=== PATIENT | female | born 1970 | race Two or more races ===

== ENCOUNTER 2025-01-07 11:37 | Inpatient (IN) | payer OTHER ==
[~2025-01-07] VITALS: Ht 149.9 cm; Wt 68.9 kg
[2025-01-07] MEDS ORDERED: TOPROL XL25 M1 (11:59)
--- NOTE | 2025-01-07 12:08 | NUR ---
PTE ALERTA Y ORIENTADA X3, REFIERE PADECE DE DIVERTICULITIS Y TIEENE DOLOR ABDOMINAL. AL MOMENTO DE TRIAGE PULSO EN 119, SE REALIZA EKG Y SE PRESENTA A . SE UBICA PTE. NO TIENE EN [facility].
[2025-01-07] MEDS ORDERED: PIPERACILLIN/TAZOBACTAM SODIUM 3.375 GM VIAL IV ONE ×2 (12:45→12:52)
[2025-01-07] MEDS ORDERED: 0.9 % SODIUM CHLORIDE 1,000 ML IV ONE (12:45)
[2025-01-07] MEDS ORDERED: PANTOPRAZOLE SODIUM 40 MG/VIAL VIAL IV PUSH ONE (12:45)
[2025-01-07] MEDS ORDERED: METHYLPREDNISOLONE SOD SUCC 125 MG VIAL ONE (12:52)
[2025-01-07] MEDS ORDERED: DIPHENHYDRAMINE HCL 50 MG/ML VIAL 1ML ONE (12:52)
[2025-01-07] MEDS ORDERED: METHYLPREDNISOLONE SOD SUCC 125 MG VIAL IV ONE (13:00)
[2025-01-07] MEDS ORDERED: DIPHENHYDRAMINE HCL 50 MG/ML VIAL 1ML IV ONE (13:00)
--- NOTE | 2025-01-07 13:42 | NUR ---
PTE EVALUADA POR EL DR.GRILLO RAINE ORDENA TRATAMIENTO LA CUAL SE EJECUTA POR MS.DEL CHANI HANKINS . SE MANTIENE BAJO OBSERVACION.
[2025-01-07 14:05] LABS: BASO % 0.2 % (0.1-1.2); EOS # 0.02 (0.04-0.54); EOS % 0.1 % (0.7-7.0); LYMPH # 3.21 (1.18-3.74); LYMPH % 12.3 % (19.3-53.1); MEAN PLATELET VOLUME 12.30 fl (9.4-12.4); MONO # 1.33 (0.24-0.82); MONO % 5.1 % (4.7-12.5); NEUT # 21.30 (1.56-6.13); NEUT % 81.8 % (34.0-71.1); RED CELL DISTRIBUTION WIDTH 13.7 % (11.6-14.4)
[2025-01-07 14:07] LABS: ERYTHROCYTE SEDIMENTATION RATE 81 mm/hr (0-30)
[2025-01-07 14:27] LABS: INR 1.21
[2025-01-07 14:29] LABS: URINE APPEARANCE Clear; URINE BILIRRUBIN Negative (NEGATIVE); URINE BLOOD Moderate; URINE COLOR Yellow; URINE GLUCOSE Negative (NEGATIVE); URINE KETONE Negative (NEGATIVE); URINE LEUKOCYTE Trace; URINE NITRATE Negative; URINE PROTEIN Negative (NEGATIVE); URINE UROBILINOGEN 0.2 E.U./dl
[2025-01-07 14:30] LABS: URINE BACTERIA 17.1 uL (0.0-1933); URINE EPITHELIAL CELLS 4.2 uL (0.0-38.8); URINE RBC 24.1 uL (0.0-20.8); URINE WBC 6.1 uL (0.0-23.2)
[2025-01-07 14:32] LABS: URINE CAST 0.00 uL (0.0-1.40)
[2025-01-07 14:36] LABS: ALT/SGPT 80.0 U/L (12-78); AST/SGOT 138.0 U/L (15-37); BILIRUBIN TOTAL 1.58 mg/dL (0.3-1.2); BUN CREA RATIO 6.0 (7.0-25.0); CREATININE SERUM 0.82 mg/dL (0.55-1.02); GFR 72.92; GLOBULINA 5.7 G/DL (2.4-3.5); GLUCOSE FASTING 95.0 mg/dL (65-100); OSMOLALITY SERUM 269.0 MOSM/KG (275-295)
[2025-01-07] MEDS ORDERED: MORPHINE SULFATE 2 MG/ML CARTRIDGE IV PRN (22:45)
[2025-01-07] MEDS ORDERED: RINGERS SOLUTION,LACTATED 1,000 ML IV SCH (22:45)
[2025-01-07] MEDS ORDERED: ACETAMINOPHEN 325 MG TABLET PO PRN (22:45)
[2025-01-07] MEDS ORDERED: ENALAPRILAT DIHYDRATE 1.25 MG/ML VIAL IV PRN (22:45)
[2025-01-08] MEDS ORDERED: PIPERACILLIN/TAZOBACTAM SODIUM 3.375 GM in 0.9 % SODIUM CHLORIDE 100 ML IV SCH
[2025-01-08] MEDS ORDERED: PIPERACILLIN/TAZOBACTAM SODIUM 3.375 GM VIAL IV ONE (00:25)
[2025-01-08 03:20] VITALS: BP 90/65; O2SAT 96
[2025-01-08 08:38] VITALS: BP 100/66; O2SAT 95
[2025-01-08 16:00] VITALS: BP 104/68; O2SAT 96
[2025-01-09] VITALS: BP 105/58; O2SAT 96
[2025-01-09 08:47] VITALS: BP 98/54; O2SAT 98
[2025-01-09 14:31] LABS: ALT/SGPT 85.0 U/L (12-78); AST/SGOT 56.0 U/L (15-37); BILIRUBIN TOTAL 0.58 mg/dL (0.3-1.2); BUN CREA RATIO 23.0 (7.0-25.0); CREATININE SERUM 0.71 mg/dL (0.55-1.02); GFR 86.11; GLOBULINA 4.2 G/DL (2.4-3.5); GLUCOSE FASTING 75.0 mg/dL (65-100); OSMOLALITY SERUM 289.0 MOSM/KG (275-295)
[2025-01-09 15:43] LABS: BASO % 0.2 % (0.1-1.2); EOS # 0.02 (0.04-0.54); EOS % 0.2 % (0.7-7.0); LYMPH # 2.38 (1.18-3.74); LYMPH % 19.7 % (19.3-53.1); MEAN PLATELET VOLUME 13.10 fl (9.4-12.4); MONO # 0.46 (0.24-0.82); MONO % 3.8 % (4.7-12.5); NEUT # 9.18 (1.56-6.13); NEUT % 75.8 % (34.0-71.1); RED CELL DISTRIBUTION WIDTH 13.8 % (11.6-14.4)
[2025-01-09 16:07] VITALS: BP 139/82; O2SAT 99
[2025-01-09] MEDS ORDERED: FLUCONAZOLE IN NACL,ISO-OSM 100 ML IV SCH (17:00)
[2025-01-09] MEDS ORDERED: LACTOBACILLUS ACIDOPHILUS 1 CAP CAP PO SCH (17:00)
[2025-01-09] MEDS ORDERED: fentaNYL CITRATE 50 MCG/ML AMPUL IV PUSH ONE (19:30)
[2025-01-09] MEDS ORDERED: MIDAZOLAM HCL 2 MG/2 ML VIAL IV PUSH ONE (19:30)
[2025-01-09] MEDS ORDERED: FAMOTIDINE/PF 20 MG/2 ML VIAL IV SCH (21:00)
[2025-01-10 01:15] VITALS: BP 135/83; O2SAT 96
[2025-01-10] MEDS ORDERED: MORPHINE SULFATE 4 MG/ML VIAL IV PRN (02:30)
[2025-01-10] MEDS ORDERED: ONDANSETRON HCL 4 MG in 0.9 % SODIUM CHLORIDE 50 ML IV PRN (02:30)
[2025-01-10] MEDS ORDERED: BARIUM SULFATE 450 ML ORAL.SUSP PO NR (05:00)
[2025-01-10 08:37] VITALS: BP 160/85; O2SAT 99
[2025-01-10 16:50] VITALS: BP 160/79; O2SAT 99
[2025-01-11 01:37] VITALS: BP 135/87; O2SAT 98
[2025-01-11 08:43] VITALS: BP 146/81; O2SAT 99
[2025-01-11] MEDS ORDERED: CEFEPIME HCL 2,000 MG VIAL IV SCH (12:30)
[2025-01-11] MEDS ORDERED: METRONIDAZOLE/SODIUM CHLORIDE 500 MG/100 ML PIGGYBACK IV SCH (13:00)
[2025-01-11 16:50] VITALS: BP 157/78; O2SAT 100
[2025-01-12 00:46] VITALS: BP 138/81; O2SAT 97
[2025-01-12 08:39] VITALS: BP 115/74; O2SAT 97
[2025-01-12] MEDS ORDERED: ACETAMINOPHEN 325 MG TABLET PO SCH (17:00)
[2025-01-12] MEDS ORDERED: TRAMADOL HCL 50 MG TABLET PO SCH (17:00)
[2025-01-12 17:03] VITALS: BP 109/74; O2SAT 97
[2025-01-13] VITALS: BP 105/69; O2SAT 95
[2025-01-13 08:00] VITALS: BP 120/83; O2SAT 96
[2025-01-13] MEDS ORDERED: SIMETHICONE 125 MG CAPSULE PO PRN (11:30)
[2025-01-13 12:55] LABS: BASO % 0.1 % (0.1-1.2); EOS # 0.10 (0.04-0.54); EOS % 0.5 % (0.7-7.0); LYMPH # 1.28 (1.18-3.74); LYMPH % 6.2 % (19.3-53.1); MEAN PLATELET VOLUME 11.90 fl (9.4-12.4); MONO # 0.76 (0.24-0.82); MONO % 3.7 % (4.7-12.5); NEUT # 18.44 (1.56-6.13); NEUT % 88.9 % (34.0-71.1); RED CELL DISTRIBUTION WIDTH 13.2 % (11.6-14.4)
[2025-01-13 14:18] LABS: ALT/SGPT 30.0 U/L (12-78); AST/SGOT 9.0 U/L (15-37); BILIRUBIN TOTAL 0.53 mg/dL (0.3-1.2); BUN CREA RATIO 8.0 (7.0-25.0); CREATININE SERUM 0.49 mg/dL (0.55-1.02); GFR 132.11; GLOBULINA 3.9 G/DL (2.4-3.5); GLUCOSE FASTING 111.0 mg/dL (65-100); OSMOLALITY SERUM 275.0 MOSM/KG (275-295)
[2025-01-13 21:20] VITALS: BP 133/55; O2SAT 99
[2025-01-14 01:01] VITALS: BP 118/80; O2SAT 97
[2025-01-14 08:28] VITALS: BP 120/78; O2SAT 97
[2025-01-14 16:00] VITALS: BP 123/82; O2SAT 96
[2025-01-14] MEDS ORDERED: MEROPENEM 500 MG/VIAL VIAL IV STA (16:28)
[2025-01-14] MEDS ORDERED: FLUCONAZOLE IN NACL,ISO-OSM 200 MG/100 ML PIGGYBAG IV STA (16:29)
[2025-01-14] MEDS ORDERED: MEROPENEM 500 MG/VIAL VIAL IV SCH (20:00)
[2025-01-15 00:50] VITALS: BP 125/79; O2SAT 99
[2025-01-15] MEDS ORDERED: METHYLPREDNISOLONE SOD SUCC 40 MG VIAL IV ONE (04:45)
[2025-01-15] MEDS ORDERED: DIATRIZOATE MEGLUMINE, SODIUM 30 ML BOTTLE PO ONE (04:45)
[2025-01-15] MEDS ORDERED: DIPHENHYDRAMINE HCL 50 MG/ML VIAL 1ML IV ONE (04:45)
[2025-01-15 08:16] LABS: BASO % 0.4 % (0.1-1.2); EOS # 0.32 (0.04-0.54); EOS % 2.9 % (0.7-7.0); LYMPH # 2.29 (1.18-3.74); LYMPH % 21.1 % (19.3-53.1); MEAN PLATELET VOLUME 11.40 fl (9.4-12.4); MONO # 0.66 (0.24-0.82); MONO % 6.1 % (4.7-12.5); NEUT # 7.51 (1.56-6.13); NEUT % 69.2 % (34.0-71.1); RED CELL DISTRIBUTION WIDTH 13.5 % (11.6-14.4)
[2025-01-15 08:17] VITALS: BP 124/77; O2SAT 97
[2025-01-15] MEDS ORDERED: FLUCONAZOLE IN NACL,ISO-OSM 200 MG/100 ML PIGGYBAG IV SCH (09:00)
[2025-01-15] MEDS ORDERED: DIPHENHYDRAMINE HCL 50 MG/ML VIAL 1ML IV NR (10:30)
[2025-01-15] MEDS ORDERED: METHYLPREDNISOLONE SOD SUCC 40 MG VIAL IV NR (10:30)
[2025-01-15 16:00] VITALS: BP 123/79; O2SAT 97
[2025-01-16 00:11] VITALS: BP 117/75; O2SAT 96
[2025-01-16 06:18] LABS: BASO % 0.1 % (0.1-1.2); EOS # 0.00 (0.04-0.54); EOS % 0.0 % (0.7-7.0); LYMPH # 1.56 (1.18-3.74); LYMPH % 13.2 % (19.3-53.1); MEAN PLATELET VOLUME 11.10 fl (9.4-12.4); MONO # 0.30 (0.24-0.82); MONO % 2.5 % (4.7-12.5); NEUT # 9.85 (1.56-6.13); NEUT % 83.5 % (34.0-71.1); RED CELL DISTRIBUTION WIDTH 13.4 % (11.6-14.4)
[2025-01-16 08:46] VITALS: BP 142/82; O2SAT 97
[2025-01-16 16:00] VITALS: BP 141/81; O2SAT 99
[2025-01-17 00:35] VITALS: BP 140/86; O2SAT 96
[2025-01-17 08:55] VITALS: BP 156/71; O2SAT 100
[2025-01-17 14:00] VITALS: BP 135/77; O2SAT 100
[2025-01-18 00:27] VITALS: BP 156/86; O2SAT 97
[2025-01-18 08:00] VITALS: BP 134/83; O2SAT 97
[2025-01-18 16:33] VITALS: BP 135/84; O2SAT 96
[2025-01-19 00:26] VITALS: BP 130/81; O2SAT 98
[2025-01-19 06:57] LABS: BASO % 0.3 % (0.1-1.2); EOS # 0.27 (0.04-0.54); EOS % 2.5 % (0.7-7.0); LYMPH # 2.81 (1.18-3.74); LYMPH % 25.5 % (19.3-53.1); MEAN PLATELET VOLUME 10.10 fl (9.4-12.4); MONO # 0.56 (0.24-0.82); MONO % 5.1 % (4.7-12.5); NEUT # 7.28 (1.56-6.13); NEUT % 66.1 % (34.0-71.1); RED CELL DISTRIBUTION WIDTH 13.6 % (11.6-14.4)
[2025-01-19 07:23] LABS: BUN CREA RATIO 15.0 (7.0-25.0); CREATININE SERUM 0.4 mg/dL (0.55-1.02); GFR 166.97; GLUCOSE FASTING 94.0 mg/dL (65-100); OSMOLALITY SERUM 286.0 MOSM/KG (275-295)
[2025-01-19 08:00] VITALS: BP 160/94; O2SAT 97
[2025-01-19] MEDS ORDERED: METOPROLOL SUCCINATE 25 MG TAB.SR.24H PO NR (12:30)
[2025-01-19 16:03] VITALS: BP 138/81; O2SAT 98
[2025-01-20 00:47] VITALS: BP 128/84; O2SAT 97
[2025-01-20 08:00] VITALS: BP 128/85; O2SAT 95
[2025-01-20] MEDS ORDERED: METOPROLOL SUCCINATE 25 MG TAB.SR.24H PO SCH (09:00)
[2025-01-20] MEDS ORDERED: METHYLPREDNISOLONE SOD SUCC 40 MG VIAL IV NR (10:15)
[2025-01-20] MEDS ORDERED: DIPHENHYDRAMINE HCL 50 MG/ML VIAL 1ML IV NR (10:15)
[2025-01-20 16:00] VITALS: BP 162/92; O2SAT 96
[2025-01-21 00:21] VITALS: BP 117/70; O2SAT 99
[2025-01-21 07:55] LABS: BASO % 0.3 % (0.1-1.2); EOS # 0.26 (0.04-0.54); EOS % 2.2 % (0.7-7.0); LYMPH # 1.74 (1.18-3.74); LYMPH % 14.5 % (19.3-53.1); MEAN PLATELET VOLUME 10.50 fl (9.4-12.4); MONO # 0.40 (0.24-0.82); MONO % 3.3 % (4.7-12.5); NEUT # 9.51 (1.56-6.13); NEUT % 79.4 % (34.0-71.1); RED CELL DISTRIBUTION WIDTH 13.8 % (11.6-14.4)
[2025-01-21 08:09] LABS: ALT/SGPT 33.0 U/L (12-78); AST/SGOT 27.0 U/L (15-37); BILIRUBIN TOTAL 0.32 mg/dL (0.3-1.2); BUN CREA RATIO 17.0 (7.0-25.0); CREATININE SERUM 0.52 mg/dL (0.55-1.02); GFR 123.35; GLOBULINA 3.8 G/DL (2.4-3.5); GLUCOSE FASTING 122.0 mg/dL (65-100); OSMOLALITY SERUM 283.0 MOSM/KG (275-295)
[2025-01-21 09:20] VITALS: BP 122/81; O2SAT 98
[2025-01-21] MEDS ORDERED: DIATRIZOATE MEGLUMINE, SODIUM 30 ML BOTTLE PO NR (09:30)
[2025-01-21] MEDS ORDERED: METHYLPREDNISOLONE SOD SUCC 40 MG VIAL IV NR (09:30)
[2025-01-21] MEDS ORDERED: DIPHENHYDRAMINE HCL 50 MG/ML VIAL 1ML IV NR (09:30)
[2025-01-21 16:00] VITALS: BP 117/78; O2SAT 95
[2025-01-22 00:42] VITALS: BP 106/70; O2SAT 98
[2025-01-22 08:02] VITALS: BP 113/76; O2SAT 96
[2025-01-22 08:44] LABS: BUN CREA RATIO 26.0 (7.0-25.0); CREATININE SERUM 0.47 mg/dL (0.55-1.02); GFR 138.61; GLUCOSE FASTING 132.0 mg/dL (65-100); OSMOLALITY SERUM 281.0 MOSM/KG (275-295)
[2025-01-22 16:44] VITALS: BP 120/78; O2SAT 97
[2025-01-23 00:36] VITALS: BP 127/86; O2SAT 98
[2025-01-23 08:13] VITALS: BP 127/82; O2SAT 97
[2025-01-23 16:00] VITALS: BP 116/82; O2SAT 97
[2025-01-24 01:24] VITALS: BP 122/78; O2SAT 100
[2025-01-24 07:35] LABS: BASO % 0.3 % (0.1-1.2); EOS # 0.23 (0.04-0.54); EOS % 1.5 % (0.7-7.0); LYMPH # 2.38 (1.18-3.74); LYMPH % 16.0 % (19.3-53.1); MEAN PLATELET VOLUME 10.40 fl (9.4-12.4); MONO # 0.83 (0.24-0.82); MONO % 5.6 % (4.7-12.5); NEUT # 11.38 (1.56-6.13); NEUT % 76.3 % (34.0-71.1); RED CELL DISTRIBUTION WIDTH 14.2 % (11.6-14.4)
[2025-01-24 08:00] VITALS: BP 115/79; O2SAT 97
[2025-01-24 08:33] LABS: BUN CREA RATIO 16.0 (7.0-25.0); CREATININE SERUM 0.57 mg/dL (0.55-1.02); GFR 110.95; GLUCOSE FASTING 97.0 mg/dL (65-100); OSMOLALITY SERUM 280.0 MOSM/KG (275-295)
[2025-01-24] MEDS ORDERED: ENOXAPARIN SODIUM 40 MG/0.4 ML SYRINGE SUBCUTANEO SCH (09:00)
[2025-01-24 16:56] VITALS: BP 113/77; O2SAT 96
[2025-01-24] MEDS ORDERED: DICYCLOMINE HCL 20 MG TABLET PO SCH (17:00)
[2025-01-24] MEDS ORDERED: MAGNESIUM SULFATE IN WATER 2 GM/50 ML PIGGYBAG IV NR (17:30)
[2025-01-25 00:43] VITALS: BP 98/65; O2SAT 96
[2025-01-25 08:00] VITALS: BP 112/75; O2SAT 96
[2025-01-25 08:33] LABS: BASO % 0.5 % (0.1-1.2); EOS # 0.29 (0.04-0.54); EOS % 2.3 % (0.7-7.0); LYMPH # 2.66 (1.18-3.74); LYMPH % 21.4 % (19.3-53.1); MEAN PLATELET VOLUME 10.70 fl (9.4-12.4); MONO # 0.75 (0.24-0.82); MONO % 6.0 % (4.7-12.5); NEUT # 8.65 (1.56-6.13); NEUT % 69.6 % (34.0-71.1); RED CELL DISTRIBUTION WIDTH 14.1 % (11.6-14.4)
[2025-01-25 09:10] LABS: BUN CREA RATIO 14.0 (7.0-25.0); CREATININE SERUM 0.5 mg/dL (0.55-1.02); GFR 129.06; GLUCOSE FASTING 89.0 mg/dL (65-100); OSMOLALITY SERUM 275.0 MOSM/KG (275-295)
== END 2025-01-25 22:30 | DRG 392 ==
LOC: ER 12:20 → SURH 01-08 00:02
PROVIDERS: Colon & Rectal Surgery; General Practice; Internal Medicine; Internal Medicine Infectious Disease; Student in an Organized Health Care Education/Training Program; ADMIT Internal Medicine; ATTEND Internal Medicine
PROC: BW21YZZ Computerized Tomography (CT Scan) of Abdomen and Pelvis using Other Contrast (ICD-10-PCS; 2025-01-07)
PROC: 0W9G3ZX Drainage of Peritoneal Cavity, Percutaneous Approach, Diagnostic (ICD-10-PCS; principal; 2025-01-09)
PROC: BW21YZZ Computerized Tomography (CT Scan) of Abdomen and Pelvis using Other Contrast (ICD-10-PCS; 2025-01-10)
PROC: BW21YZZ Computerized Tomography (CT Scan) of Abdomen and Pelvis using Other Contrast (ICD-10-PCS; 2025-01-15)
PROC: BW21YZZ Computerized Tomography (CT Scan) of Abdomen and Pelvis using Other Contrast (ICD-10-PCS; 2025-01-21)
DX: K57.92 Diverticulitis of intestine, part unspecified, without perforation or abscess without bleeding (principal); N73.9 Female pelvic inflammatory disease, unspecified

== ENCOUNTER 2025-02-05 20:23 | Inpatient (IN) | payer OTHER ==
[~2025-02-05] VITALS: Ht 149.9 cm; Wt 67.6 kg
[~2025-02-05 20:23] MED LIST: TOPROL XL25 M1
[2025-02-05] MEDS ORDERED: PEPCID AC20 MG PO (20:40)
[2025-02-05] MEDS ORDERED: PROBIOTIC1 EAC4 (20:40)
[2025-02-05] MEDS ORDERED: PEPCID AC20 MG (20:40)
--- NOTE | 2025-02-05 20:41 | NUR ---
PTE REFIERE MAL FUNCIONAMIENTO DE DRENA EN AREA DEL ABDOMEN, EL CUAL SE ADMINISTRO PARA DRENAR DOS ABSCESOS Y FISURA.
[2025-02-05] MEDS ORDERED: RINGERS SOLUTION,LACTATED 1,000 ML IV STA (21:55)
[2025-02-05] MEDS ORDERED: PIPERACILLIN/TAZOBACTAM SODIUM 3.375 GM VIAL IV STA (21:55)
--- NOTE | 2025-02-05 22:02 | NUR ---
SE ORIENTA A PACIENTE SOBRE TX MEDICO, REFIERE ENTENDER. SE REALIZAN MUESTRAS DE LABORATORIO BAJO MEDIDAS ASEPTICAS. SE ADMINISTRA IV'S Y MEDICAMENTO [place] ORDEN MEDICA. PENDIENTE RE-EVALUACION MEDICA.
[2025-02-05 23:18] LABS: BASO % 0.2 % (0.1-1.2); EOS # 0.13 (0.04-0.54); EOS % 0.9 % (0.7-7.0); LYMPH # 1.05 (1.18-3.74); LYMPH % 7.1 % (19.3-53.1); MEAN PLATELET VOLUME 11.90 fl (9.4-12.4); MONO # 0.44 (0.24-0.82); MONO % 3.0 % (4.7-12.5); NEUT # 13.17 (1.56-6.13); NEUT % 88.5 % (34.0-71.1); RED CELL DISTRIBUTION WIDTH 14.2 % (11.6-14.4)
[2025-02-05] MEDS ORDERED: MORPHINE SULFATE 4 MG/ML VIAL IV STA (23:30)
[2025-02-05 23:31] LABS: INR 1.1
[2025-02-05 23:36] LABS: ALT/SGPT 28.0 U/L (12-78); AST/SGOT 17.0 U/L (15-37); BILIRUBIN TOTAL 0.67 mg/dL (0.3-1.2); BUN CREA RATIO 12.0 (7.0-25.0); CREATININE SERUM 0.59 mg/dL (0.55-1.02); GFR 106.62; GLOBULINA 4.4 G/DL (2.4-3.5); GLUCOSE FASTING 144.0 mg/dL (65-100); OSMOLALITY SERUM 285.0 MOSM/KG (275-295)
--- NOTE | 2025-02-05 23:55 | NUR ---
SE RECIBE PTE ALERTA Y ORIENTADA X3, BUEN PATRON RESPIRATORIO, CANALIZADA EN BRAZO IZQUERDO ANGIO #[id number], PATENTE, RECIBIENDO R/L A 120 MLS/HR. PTE EN ESPERA DE REPORTE DE CT SCAN, PARA REEVALUACION.
[2025-02-06] MEDS ORDERED: MORPHINE SULFATE 4 MG/ML VIAL IV STA (06:58)
--- NOTE | 2025-02-06 07:16 | NUR ---
PTE ALERTA Y ORIENTADA X3 EN LIBRADO EN POSICION SEMI SENTADA CON BARANDAS ELEVADAS POR POLO SEGURIDAD. PTE CANLIZADA AREA SHANICE DE EDEMA Y ENROJECIMIENTO. PTE RECIBIENDO INFUSION DE 0.9 NSS @ 120 ML/HR. SE MANTIENE BAJO OBSERVACION POR CAMBIO.
[2025-02-06] MEDS ORDERED: METRONIDAZOLE/SODIUM CHLORIDE 500 MG/100 ML PIGGYBACK IV STA (07:27)
[2025-02-06] MEDS ORDERED: MEROPENEM 500 MG/VIAL VIAL IV STA (07:30)
--- NOTE | 2025-02-06 08:22 | NUR ---
SE RECIBE PTE FEMENINA DE 55 YRS ALERTA CONCIENTE Y TRANQUILA . POR ORDEN MEDIC A, SE LE ADMINIOSTRA MEDICAMENTOS DE ANTIBIOTICO POR IV. SE LA ADMOINISTRA MORFINA 4 MG POR DOLOR . SE MANTIENE NPO Y SE LE ORIENTA A LA PTE. SE MANTIENE BAJO OBSERVACION.
[2025-02-06] MEDS ORDERED: METRONIDAZOLE/SODIUM CHLORIDE 500 MG/100 ML PIGGYBACK IV SCH (09:00)
[2025-02-06] MEDS ORDERED: MEROPENEM 500 MG/VIAL VIAL IV SCH (17:00)
[2025-02-06] MEDS ORDERED: FAMOTIDINE/PF 20 MG in 0.9 % SODIUM CHLORIDE 8 ML IV PUSH SCH (17:23)
[2025-02-06] MEDS ORDERED: ONDANSETRON HCL 4 MG in 0.9 % SODIUM CHLORIDE 50 ML IV PRN (17:30)
[2025-02-06] MEDS ORDERED: MORPHINE SULFATE 4 MG/ML CARTRIDGE IV PRN (17:30)
[2025-02-06] MEDS ORDERED: MORPHINE SULFATE 4 MG/ML CARTRIDGE IV ONE (17:30)
[2025-02-06] MEDS ORDERED: ACETAMINOPHEN 500 MG GEL..CAP PO PRN (17:30)
[2025-02-06] MEDS ORDERED: 0.9 % SODIUM CHLORIDE 1,000 ML IV SCH (17:30)
[2025-02-06 19:00] VITALS: BP 123/65; O2SAT 96
[2025-02-07 06:13] LABS: URINE APPEARANCE Clear; URINE BILIRRUBIN Negative (NEGATIVE); URINE BLOOD Large; URINE COLOR Orange; URINE GLUCOSE Negative (NEGATIVE); URINE LEUKOCYTE Small; URINE NITRATE Negative; URINE PROTEIN Trace (NEGATIVE); URINE UROBILINOGEN 0.2 E.U./dl
[2025-02-07 06:17] LABS: URINE BACTERIA 7.1 uL (0.0-1933); URINE EPITHELIAL CELLS 7.9 uL (0.0-38.8); URINE RBC 316.5 uL (0.0-20.8); URINE WBC 22.7 uL (0.0-23.2)
[2025-02-07 06:37] LABS: URINE CAST 0.43 uL (0.0-1.40); URINE KETONE 80 (NEGATIVE)
[2025-02-07] MEDS ORDERED: METOPROLOL SUCCINATE 25 MG TAB.SR.24H PO SCH (09:00)
[2025-02-07] MEDS ORDERED: FLUCONAZOLE IN NACL,ISO-OSM 100 ML IV SCH (10:30)
[2025-02-07 13:50] VITALS: BP 113/74; O2SAT 98
[2025-02-08 08:00] VITALS: BP 116/75; O2SAT 99
[2025-02-08] MEDS ORDERED: FLUCONAZOLE IN NACL,ISO-OSM 100 ML IV SCH (09:00)
[2025-02-08] MEDS ORDERED: DEXTROSE 5 %-0.45 % SOD CHLORD 1,000 ML IV SCH (09:45)
[2025-02-08] MEDS ORDERED: DEXTROSE 50 % IN WATER 0.5 G/ML VIAL IV PRN (10:15)
[2025-02-08 16:00] VITALS: BP 135/80; O2SAT 98
[2025-02-09 01:57] VITALS: BP 108/71; O2SAT 97
[2025-02-09 09:32] LABS: BASO % 0.4 % (0.1-1.2); EOS # 0.21 (0.04-0.54); EOS % 4.4 % (0.7-7.0); LYMPH # 1.37 (1.18-3.74); LYMPH % 29.0 % (19.3-53.1); MEAN PLATELET VOLUME 12.20 fl (9.4-12.4); MONO # 0.31 (0.24-0.82); MONO % 6.6 % (4.7-12.5); NEUT # 2.80 (1.56-6.13); NEUT % 59.4 % (34.0-71.1); RED CELL DISTRIBUTION WIDTH 13.7 % (11.6-14.4)
[2025-02-09 10:18] LABS: BUN CREA RATIO 5.0 (7.0-25.0); CREATININE SERUM 0.37 mg/dL (0.55-1.02); GFR 182.69; GLUCOSE FASTING 107.0 mg/dL (65-100); OSMOLALITY SERUM 285.0 MOSM/KG (275-295)
[2025-02-09 10:31] VITALS: BP 134/84; O2SAT 98
[2025-02-09 16:00] VITALS: BP 146/89; O2SAT 99
[2025-02-09] MEDS ORDERED: IOVERSOL 320 MG/ML - 50 ML VIAL IV ONE (21:30)
[2025-02-09] MEDS ORDERED: NITROGLYCERIN 1 INCH OINT..GM. TD ONE (22:30)
[2025-02-09] MEDS ORDERED: BUPIVACAINE HCL/PF 0.25% 30ML VIAL InF ONE (22:30)
[2025-02-09] MEDS ORDERED: METRONIDAZOLE/SODIUM CHLORIDE 500 MG/100 ML PIGGYBACK IV ONE (23:58)
[2025-02-10 06:47] LABS: BASO % 0.7 % (0.1-1.2); EOS # 0.21 (0.04-0.54); EOS % 3.6 % (0.7-7.0); LYMPH # 1.58 (1.18-3.74); LYMPH % 26.8 % (19.3-53.1); MEAN PLATELET VOLUME 12.10 fl (9.4-12.4); MONO # 0.40 (0.24-0.82); MONO % 6.8 % (4.7-12.5); NEUT # 3.66 (1.56-6.13); NEUT % 61.9 % (34.0-71.1); RED CELL DISTRIBUTION WIDTH 13.6 % (11.6-14.4)
[2025-02-10 08:00] VITALS: BP 131/76; O2SAT 96
[2025-02-10] MEDS ORDERED: CEFTAZIDIME/AVIBACTAM 2.5 GM VIAL IV STA (11:45)
[2025-02-10] MEDS ORDERED: CEFTAZIDIME/AVIBACTAM 2.5 GM VIAL IV SCH (13:00)
[2025-02-10] MEDS ORDERED: AMPICILLIN SODIUM/SULBACTAM NA 3,000 MG VIAL IV SCH (17:00)
[2025-02-10 17:02] VITALS: BP 113/72; O2SAT 97
[2025-02-11 01:06] VITALS: BP 109/73; O2SAT 98
[2025-02-11] MEDS ORDERED: 0.9 % SODIUM CHLORIDE 1,000 ML IV SCH (10:30)
[2025-02-11 16:00] VITALS: BP 141/80; O2SAT 98
[2025-02-11] MEDS ORDERED: CEFTAZIDIME/AVIBACTAM 1.25GM/100ML NSS PB IV SCH (21:00)
[2025-02-12 01:38] VITALS: BP 121/79; O2SAT 98
[2025-02-12 08:00] LABS: BASO % 0.5 % (0.1-1.2); EOS # 0.24 (0.04-0.54); EOS % 4.0 % (0.7-7.0); LYMPH # 2.36 (1.18-3.74); LYMPH % 39.1 % (19.3-53.1); MEAN PLATELET VOLUME 11.70 fl (9.4-12.4); MONO # 0.43 (0.24-0.82); MONO % 7.1 % (4.7-12.5); NEUT # 2.96 (1.56-6.13); NEUT % 49.0 % (34.0-71.1); RED CELL DISTRIBUTION WIDTH 13.8 % (11.6-14.4)
[2025-02-12 08:30] VITALS: BP 144/80; O2SAT 97
[2025-02-12] MEDS ORDERED: CEFTAZIDIME/AVIBACTAM 2.5 GM VIAL IV SCH (13:00)
[2025-02-12 14:36] LABS: BUN CREA RATIO 7.0 (7.0-25.0); CREATININE SERUM 0.46 mg/dL (0.55-1.02); GFR 142.1; GLUCOSE FASTING 88.0 mg/dL (65-100); OSMOLALITY SERUM 285.0 MOSM/KG (275-295)
[2025-02-12 16:00] VITALS: BP 173/82; O2SAT 97
[2025-02-13 00:38] VITALS: BP 127/73; O2SAT 100
[2025-02-13 08:56] VITALS: BP 126/71; O2SAT 97
[2025-02-13 17:21] VITALS: BP 132/78; O2SAT 98
[2025-02-14 01:57] VITALS: BP 127/78; O2SAT 99
[2025-02-14 08:58] VITALS: BP 118/68; O2SAT 96
[2025-02-14 17:28] VITALS: BP 130/78; O2SAT 98
[2025-02-15] VITALS: BP 131/77; O2SAT 95
[2025-02-15 09:23] VITALS: BP 124/75; O2SAT 96
[2025-02-15 17:42] VITALS: BP 134/83; O2SAT 95
== END 2025-02-15 19:51 | DRG 920 ==
LOC: ER 20:28 → SURH 02-06 17:35 → SEC-K 02-06 17:35 → SURG 02-06 17:35 → SURH 02-06 22:07 → SEC-K 02-06 23:48 → SURG 02-07 09:58 → SURH 02-09 09:52
PROVIDERS: General Practice; Radiology Vascular & Interventional Radiology; Student in an Organized Health Care Education/Training Program; ADMIT Internal Medicine; ATTEND Internal Medicine
PROC: BW21ZZZ Computerized Tomography (CT Scan) of Abdomen and Pelvis (ICD-10-PCS; 2025-02-05)
PROC: 0W2FX0Z Change Drainage Device in Abdominal Wall, External Approach (ICD-10-PCS; 2025-02-09)
PROC: 8E0ZXY6 Isolation (ICD-10-PCS; principal; 2025-02-09 23:00)
PROC: 3E03329 Introduction of Other Anti-infective into Peripheral Vein, Percutaneous Approach (ICD-10-PCS; 2025-02-10)
DX: T85.628A Displacement of other specified internal prosthetic devices, implants and grafts, initial encounter (principal); K57.20 Diverticulitis of large intestine with perforation and abscess without bleeding; L02.211 Cutaneous abscess of abdominal wall; E16.2 Hypoglycemia, unspecified; I10 Essential (primary) hypertension; Z88.2 Allergy status to sulfonamides; B96.1 Klebsiella pneumoniae [K. pneumoniae] as the cause of diseases classified elsewhere; B96.20 Unspecified Escherichia coli [E. coli] as the cause of diseases classified elsewhere; B95.2 Enterococcus as the cause of diseases classified elsewhere
CPT/HCPCS: 49424; 76080; 49423; 75984; 74176; J0714

== ENCOUNTER 2025-04-07 11:00 | Inpatient (IN) | payer OTHER ==
[~2025-04-07] VITALS: Ht 152.4 cm; Wt 0.5 kg
[~2025-04-07 11:00] MED LIST changes: +PEPCID AC20 MG; +PEPCID AC20 MG PO; +PROBIOTIC1 EAC4
[2025-04-14] MEDS ORDERED: CEFTRIAXONE SODIUM 2,000 MG VIAL ONE (06:36)
[2025-04-14] MEDS ORDERED: METRONIDAZOLE/SODIUM CHLORIDE 500 MG/100 ML PIGGYBACK IV ONE (06:36)
[2025-04-14] MEDS ORDERED: LIDOCAINE HCL 1%/EPINEPHRINE 20ML VIAL IJ ONE (07:12)
[2025-04-14] MEDS ORDERED: POVIDONE-IODINE 118 ML BOTT TOP ONE (07:12)
[2025-04-14] MEDS ORDERED: BUPIVACAINE HCL/MPF 0.5% 30ML VIAL ONE (07:12)
[2025-04-14] MEDS ORDERED: CHLORHEXIDINE GLUCONATE 120 ML BOTTLE TOP ONE (09:00)
[2025-04-14] MEDS ORDERED: SUGAMMADEX SODIUM 200 MG/2 ML VIAL IV ONE (12:04)
[2025-04-14] MEDS ORDERED: OxyCODONE HCL 5 MG TABLET (ROXICODONE) PO PRN (13:30)
[2025-04-14] MEDS ORDERED: MORPHINE SULFATE 4 MG/ML CARTRIDGE IV PRN (13:30)
[2025-04-14] MEDS ORDERED: RINGERS SOLUTION,LACTATED 1,000 ML IV SCH (13:30)
[2025-04-14] MEDS ORDERED: ONDANSETRON HCL 2 MG/ML VIAL IV PRN (13:30)
[2025-04-14] MEDS ORDERED: ACETAMINOPHEN 500 MG GEL..CAP PO SCH (14:00)
[2025-04-14] MEDS ORDERED: ONDANSETRON HCL 2 MG/ML VIAL ONE (14:43)
[2025-04-14] MEDS ORDERED: ONDANSETRON HCL 2 MG/ML VIAL IV ONE (14:45)
[2025-04-14 15:35] LABS: BASO % 0.2 % (0.1-1.2); EOS # 0.01 (0.04-0.54); EOS % 0.1 % (0.7-7.0); LYMPH # 1.20 (1.18-3.74); LYMPH % 7.3 % (19.3-53.1); MEAN PLATELET VOLUME 11.40 fl (9.4-12.4); MONO # 0.40 (0.24-0.82); MONO % 2.4 % (4.7-12.5); NEUT # 14.69 (1.56-6.13); NEUT % 89.8 % (34.0-71.1); RED CELL DISTRIBUTION WIDTH 12.1 % (11.6-14.4)
[2025-04-14 16:00] LABS: BUN CREA RATIO 11.0 (7.0-25.0); CREATININE SERUM 0.84 mg/dL (0.55-1.02); GFR 70.92; GLUCOSE FASTING 149.0 mg/dL (65-100); OSMOLALITY SERUM 285.0 MOSM/KG (275-295)
[2025-04-14] MEDS ORDERED: METRONIDAZOLE/SODIUM CHLORIDE 500 MG/100 ML PIGGYBACK IV SCH (17:00)
[2025-04-14] MEDS ORDERED: SIMETHICONE 125 MG CAPSULE PO SCH (17:00)
[2025-04-14] MEDS ORDERED: GABAPENTIN 300 MG CAPSULE PO SCH (17:00)
[2025-04-14 18:30] VITALS: BP 160/80; O2SAT 96
[2025-04-14 19:01] VITALS: BP 141/85
[2025-04-14] MEDS ORDERED: CIPROFLOXACIN IN 5 % DEXTROSE 400 MG/200 ML PIGGYBAG IV SCH (21:00)
[2025-04-14] MEDS ORDERED: FAMOTIDINE/PF 20 MG/2 ML VIAL IV SCH (21:00)
[2025-04-15 00:45] VITALS: BP 149/81; O2SAT 98
[2025-04-15 07:33] LABS: BASO % 0.2 % (0.1-1.2); EOS # 0.02 (0.04-0.54); EOS % 0.1 % (0.7-7.0); LYMPH # 1.72 (1.18-3.74); LYMPH % 12.3 % (19.3-53.1); MEAN PLATELET VOLUME 11.90 fl (9.4-12.4); MONO # 0.62 (0.24-0.82); MONO % 4.4 % (4.7-12.5); NEUT # 11.59 (1.56-6.13); NEUT % 82.6 % (34.0-71.1); RED CELL DISTRIBUTION WIDTH 12.3 % (11.6-14.4)
[2025-04-15 07:48] LABS: BUN CREA RATIO 13.0 (7.0-25.0); CREATININE SERUM 0.78 mg/dL (0.55-1.02); GFR 77.26; GLUCOSE FASTING 98.0 mg/dL (65-100); OSMOLALITY SERUM 280.0 MOSM/KG (275-295)
[2025-04-15 08:39] VITALS: BP 115/72; O2SAT 95
[2025-04-15] MEDS ORDERED: METOPROLOL SUCCINATE 25 MG TAB.SR.24H PO SCH (09:00)
[2025-04-15] MEDS ORDERED: LACTOBACILLUS ACIDOPHILUS 1 CAP CAP PO SCH (09:00)
[2025-04-15] MEDS ORDERED: MAGNESIUM CHLORIDE 70 MG TABLET.DR PO SCH (09:00)
[2025-04-15 16:00] VITALS: BP 101/68; O2SAT 98
[2025-04-15] MEDS ORDERED: ENOXAPARIN SODIUM 40 MG/0.4 ML SYRINGE SUBCUTANEO SCH (17:00)
[2025-04-15] MEDS ORDERED: MAGNESIUM SULFATE 50% 1,000 MG/2 ML VIAL IV ONE (18:15)
[2025-04-15] MEDS ORDERED: MORPHINE SULFATE 2 MG/ML CARTRIDGE IV STA (18:26)
[2025-04-15] MEDS ORDERED: MEROPENEM 1,000 MG VIAL IV STA (18:28)
[2025-04-15] MEDS ORDERED: MORPHINE SULFATE 2 MG/ML CARTRIDGE IV PRN (18:30)
[2025-04-15] MEDS ORDERED: MAGNESIUM SULFATE IN WATER 2 GM/50 ML PIGGYBAG IV ONE (19:12)
[2025-04-16 00:49] VITALS: BP 126/81; O2SAT 97
[2025-04-16] MEDS ORDERED: MEROPENEM 1,000 MG VIAL IV SCH ×2 (01:00→18:00)
[2025-04-16] MEDS ORDERED: PANTOPRAZOLE SODIUM 40 MG/VIAL VIAL IV PUSH STA (07:00)
[2025-04-16] MEDS ORDERED: PANTOPRAZOLE SODIUM 40 MG/VIAL VIAL IV SCH (07:15)
[2025-04-16 07:50] LABS: BASO % 0.1 % (0.1-1.2); EOS # 0.02 (0.04-0.54); EOS % 0.1 % (0.7-7.0); LYMPH # 1.10 (1.18-3.74); LYMPH % 6.7 % (19.3-53.1); MEAN PLATELET VOLUME 11.60 fl (9.4-12.4); MONO # 0.56 (0.24-0.82); MONO % 3.4 % (4.7-12.5); NEUT # 14.71 (1.56-6.13); NEUT % 89.3 % (34.0-71.1); RED CELL DISTRIBUTION WIDTH 12.2 % (11.6-14.4)
[2025-04-16 08:00] VITALS: BP 138/80; O2SAT 97
[2025-04-16 08:16] LABS: BUN CREA RATIO 15.0 (7.0-25.0); CREATININE SERUM 0.85 mg/dL (0.55-1.02); GFR 69.96; GLUCOSE FASTING 112.0 mg/dL (65-100); OSMOLALITY SERUM 280.0 MOSM/KG (275-295)
[2025-04-16 16:03] VITALS: BP 134/87; O2SAT 98
[2025-04-16] MEDS ORDERED: INSULIN LISPRO 1,000 UNIT/10 ML UNITS SUBCUTANEO PRN (17:00)
[2025-04-16] MEDS ORDERED: DEXTROSE 50 % IN WATER 0.5 G/ML VIAL IV PRN (17:00)
[2025-04-16] MEDS ORDERED: MEROPENEM 500 MG/VIAL VIAL IV SCH (18:00)
[2025-04-16] MEDS ORDERED: NAPH,MB-DB/K PH,MBDB 1 PKT PACKET PO SCH (18:23)
[2025-04-16] MEDS ORDERED: MAGNESIUM SULFATE 1,000 MG in 0.9 % SODIUM CHLORIDE 50 ML IV ONE (18:30)
[2025-04-16] MEDS ORDERED: POTASSIUM PHOS,M-BASIC-D-BASIC 15 MM in 0.9 % SODIUM CHLORIDE 250 ML IV ONE (18:30)
[2025-04-16] MEDS ORDERED: DEXTROSE 5 %-0.45 % SOD CHLORD 1,000 ML IV SCH (18:45)
[2025-04-16] MEDS ORDERED: MAGNESIUM SULFATE 50% 1,000 MG/2 ML VIAL ONE (19:03)
[2025-04-16 21:04] LABS: BASO % 0.1 % (0.1-1.2); EOS # 0.01 (0.04-0.54); EOS % 0.1 % (0.7-7.0); LYMPH # 1.47 (1.18-3.74); LYMPH % 9.1 % (19.3-53.1); MEAN PLATELET VOLUME 11.60 fl (9.4-12.4); MONO # 0.66 (0.24-0.82); MONO % 4.1 % (4.7-12.5); NEUT # 14.00 (1.56-6.13); NEUT % 86.3 % (34.0-71.1); RED CELL DISTRIBUTION WIDTH 12.0 % (11.6-14.4)
[2025-04-16 21:28] LABS: ob POSITIVE (NEGATIVE)
[2025-04-17 00:40] VITALS: BP 132/79; O2SAT 100
[2025-04-17 08:29] VITALS: BP 158/84; O2SAT 98
[2025-04-17] MEDS ORDERED: IRON FUM,PS/FOLIC ACID/VITC/B3 1 CAP CAPSULE PO SCH (09:00)
[2025-04-17] MEDS ORDERED: CHLORHEXIDINE GLUCONATE 120 ML BOTTLE TOP SCH (09:00)
[2025-04-17] MEDS ORDERED: Cyanocobalamin/Mecobalamin 1 TAB.SL SL SCH (09:00)
[2025-04-17] MEDS ORDERED: SOD FERRIC GLUC COMPLX/SUCROSE 62.5 MG/5 ML AMPUL IV SCH (12:00)
[2025-04-17 12:15] LABS: BUN CREA RATIO 22.0 (7.0-25.0); CREATININE SERUM 0.85 mg/dL (0.55-1.02); GFR 69.96; GLUCOSE FASTING 148.0 mg/dL (65-100); OSMOLALITY SERUM 288.0 MOSM/KG (275-295)
[2025-04-17 12:26] LABS: COL EPI 91 SECONDS (82-175)
[2025-04-17 12:30] LABS: D DIMER 2.87 MG/L
[2025-04-17] MEDS ORDERED: POTASSIUM PHOS,M-BASIC-D-BASIC 15 MM in 0.9 % SODIUM CHLORIDE 250 ML IV NR (12:30)
[2025-04-17 12:50] LABS: CHOL HDL RATIO 3.0 (0-5.0); HDL 39.0 mg/dl (40-60); LDL 55.0 mg/dl (0-130); VLDL 22.0 (0-39)
[2025-04-17] MEDS ORDERED: fentaNYL CITRATE 50 MCG/ML AMPUL IV PUSH ONE (15:15)
[2025-04-17] MEDS ORDERED: MIDAZOLAM HCL 2 MG/2 ML VIAL IV ONE (15:15)
[2025-04-17] MEDS ORDERED: DIPHENHYDRAMINE HCL 50 MG/ML VIAL 1ML IV NR (15:15)
[2025-04-17] MEDS ORDERED: OxyCODONE HCL 5 MG TABLET (ROXICODONE) PO PRN (15:30)
[2025-04-17 15:49] VITALS: BP 117/85; O2SAT 97
[2025-04-17] MEDS ORDERED: AA 4.25%/CAL/LYTES/DEXT 5% 1,000 ML PERIFERAL SCH (17:00)
[2025-04-17] MEDS ORDERED: POTASSIUM PHOS,M-BASIC-D-BASIC 15 MM in 0.9 % SODIUM CHLORIDE 250 ML IV SCH (18:00)
[2025-04-17] MEDS ORDERED: FAT EMULSIONS 250 ML IV SCH (21:00)
[2025-04-17 22:21] VITALS: BP 155/78; O2SAT 100
[2025-04-17 23:20] VITALS: BP 167/85; O2SAT 100
[2025-04-18 04:15] VITALS: BP 118/60; O2SAT 100
[2025-04-18 07:15] VITALS: BP 153/73; O2SAT 100
[2025-04-18] MEDS ORDERED: PANTOPRAZOLE SODIUM 40 MG/VIAL VIAL IV SCH (09:00)
[2025-04-18 12:00] VITALS: BP 155/85; O2SAT 100
[2025-04-18 13:10] LABS: BASO % 0.2 % (0.1-1.2); EOS # 0.09 (0.04-0.54); EOS % 0.7 % (0.7-7.0); LYMPH # 1.79 (1.18-3.74); LYMPH % 13.4 % (19.3-53.1); MEAN PLATELET VOLUME 11.70 fl (9.4-12.4); MONO # 0.61 (0.24-0.82); MONO % 4.6 % (4.7-12.5); NEUT # 10.84 (1.56-6.13); NEUT % 80.9 % (34.0-71.1); RED CELL DISTRIBUTION WIDTH 15.6 % (11.6-14.4)
[2025-04-18 13:41] LABS: INR 1.03
[2025-04-18 14:44] LABS: ALT/SGPT 20.0 U/L (12-78); AST/SGOT 12.0 U/L (15-37); BILIRUBIN TOTAL 0.61 mg/dL (0.3-1.2); BILIRUBIN,CONJUGATED 0.19 mg/dL (0.0-0.2); BUN CREA RATIO 33.0 (7.0-25.0); CREATININE SERUM 0.55 mg/dL (0.55-1.02); GFR 115.62; GLUCOSE FASTING 121.0 mg/dL (65-100); OSMOLALITY SERUM 281.0 MOSM/KG (275-295)
[2025-04-18 15:58] VITALS: BP 166/82; O2SAT 100
[2025-04-18 20:00] VITALS: BP 138/85; O2SAT 100
[2025-04-18 23:08] VITALS: BP 117/80; O2SAT 100
[2025-04-19 04:03] VITALS: BP 145/87; O2SAT 100
[2025-04-19 08:00] VITALS: BP 136/81; O2SAT 100
[2025-04-19] MEDS ORDERED: POTASSIUM PHOS,M-BASIC-D-BASIC 15 MM in 0.9 % SODIUM CHLORIDE 250 ML IV ONE (11:00)
[2025-04-19 12:00] VITALS: BP 129/74; O2SAT 100
[2025-04-19 15:02] VITALS: BP 144/73; O2SAT 100
[2025-04-19] MEDS ORDERED: AMINO ACIDS 1 EACH TABLET PO SCH (17:00)
[2025-04-19 20:03] VITALS: BP 154/88; O2SAT 100
[2025-04-19 23:28] VITALS: BP 152/83
[2025-04-20 04:00] VITALS: BP 127/79; O2SAT 100
[2025-04-20] MEDS ORDERED: ACETAMINOPHEN 500 MG GEL..CAP PO PRN (05:06)
[2025-04-20 07:49] LABS: BASO % 0.2 % (0.1-1.2); EOS # 0.30 (0.04-0.54); EOS % 2.3 % (0.7-7.0); LYMPH # 2.06 (1.18-3.74); LYMPH % 16.0 % (19.3-53.1); MEAN PLATELET VOLUME 11.50 fl (9.4-12.4); MONO # 0.65 (0.24-0.82); MONO % 5.1 % (4.7-12.5); NEUT # 9.77 (1.56-6.13); NEUT % 76.1 % (34.0-71.1); RED CELL DISTRIBUTION WIDTH 14.5 % (11.6-14.4)
[2025-04-20 08:00] VITALS: BP 125/74; O2SAT 100
[2025-04-20 08:16] LABS: ALT/SGPT 145.0 U/L (12-78); AST/SGOT 169.0 U/L (15-37); BILIRUBIN TOTAL 0.46 mg/dL (0.3-1.2); BUN CREA RATIO 41.0 (7.0-25.0); CREATININE SERUM 0.34 mg/dL (0.55-1.02); GFR 201.41; GLOBULINA 3.5 G/DL (2.4-3.5); GLUCOSE FASTING 115.0 mg/dL (65-100); LDH 330.0 U/L (84-246); OSMOLALITY SERUM 277.0 MOSM/KG (275-295)
[2025-04-20] MEDS ORDERED: ENOXAPARIN SODIUM 40 MG/0.4 ML SYRINGE SUBCUTANEO SCH (09:00)
[2025-04-20] MEDS ORDERED: LOPERAMIDE HCL 2 MG CAPSULE PO SCH ×2 (09:00→17:00)
[2025-04-20 12:00] VITALS: BP 124/62; O2SAT 100
[2025-04-20] MEDS ORDERED: LOPERAMIDE HCL 2 MG CAPSULE PO NR (14:15)
[2025-04-20 15:06] VITALS: BP 105/70; O2SAT 100
[2025-04-20] MEDS ORDERED: PANTOPRAZOLE SODIUM 40 MG/VIAL VIAL IV NR (16:45)
[2025-04-20 20:00] VITALS: BP 123/75; O2SAT 100
[2025-04-20 23:03] VITALS: O2SAT 100
[2025-04-21 04:00] VITALS: BP 111/59; O2SAT 100
[2025-04-21 07:00] VITALS: BP 111/73; O2SAT 100
[2025-04-21 07:53] LABS: ALT/SGPT 122.0 U/L (12-78); AST/SGOT 62.0 U/L (15-37); BILIRUBIN TOTAL 0.33 mg/dL (0.3-1.2); BILIRUBIN,CONJUGATED 0.13 mg/dL (0.0-0.2); BUN CREA RATIO 32.0 (7.0-25.0); CREATININE SERUM 0.44 mg/dL (0.55-1.02); GFR 149.58; GLOBULINA 3.5 G/DL (2.4-3.5); GLUCOSE FASTING 129.0 mg/dL (65-100); LDH 149.0 U/L (84-246); OSMOLALITY SERUM 280.0 MOSM/KG (275-295)
[2025-04-21 12:00] VITALS: BP 110/80; O2SAT 100
[2025-04-21] MEDS ORDERED: MAGNESIUM SULFATE IN WATER 2 GM/50 ML PIGGYBAG IV NR (13:15)
[2025-04-21] MEDS ORDERED: POTASSIUM PHOS,M-BASIC-D-BASIC 9 MM in 0.9 % SODIUM CHLORIDE 250 ML IV NR (15:00)
[2025-04-21 15:03] VITALS: BP 100/62; O2SAT 100
[2025-04-21 19:00] VITALS: BP 105/68; O2SAT 100
[2025-04-21 20:37] VITALS: BP 90/62; O2SAT 99
[2025-04-22 00:15] VITALS: BP 110/69; O2SAT 100
[2025-04-22 07:21] LABS: ALT/SGPT 93.0 U/L (12-78); AST/SGOT 52.0 U/L (15-37); BILIRUBIN TOTAL 0.45 mg/dL (0.3-1.2); BUN CREA RATIO 44.0 (7.0-25.0); GFR 262.79; GLOBULINA 3.7 G/DL (2.4-3.5); GLUCOSE FASTING 91.0 mg/dL (65-100); OSMOLALITY SERUM 273.0 MOSM/KG (275-295)
[2025-04-22 07:23] LABS: CREATININE SERUM 0.27 mg/dL (0.55-1.02)
[2025-04-22 07:29] LABS: BASO % 0.3 % (0.1-1.2); EOS # 0.33 (0.04-0.54); EOS % 3.0 % (0.7-7.0); LYMPH # 1.97 (1.18-3.74); LYMPH % 17.8 % (19.3-53.1); MEAN PLATELET VOLUME 12.10 fl (9.4-12.4); MONO # 0.53 (0.24-0.82); MONO % 4.8 % (4.7-12.5); NEUT # 8.20 (1.56-6.13); NEUT % 73.9 % (34.0-71.1); RED CELL DISTRIBUTION WIDTH 13.9 % (11.6-14.4)
[2025-04-22 09:53] VITALS: BP 99/60; O2SAT 97
[2025-04-22] MEDS ORDERED: ACETAMINOPHEN 500 MG GEL..CAP PO PRN (14:00)
[2025-04-22 16:08] VITALS: BP 97/68; O2SAT 95
[2025-04-22] MEDS ORDERED: MAGNESIUM SULFATE 50% 1,000 MG/2 ML VIAL IV ONE (18:45)
[2025-04-23 01:14] VITALS: BP 100/61; O2SAT 100
[2025-04-23 08:34] VITALS: BP 110/60; O2SAT 99
[2025-04-23 10:00] VITALS: BP 107/73; O2SAT 100
[2025-04-23 15:00] VITALS: BP 108/77; O2SAT 98
[2025-04-24 01:01] VITALS: BP 112/68; O2SAT 100
[2025-04-24 06:06] LABS: BASO % 0.4 % (0.1-1.2); EOS # 0.29 (0.04-0.54); EOS % 2.4 % (0.7-7.0); LYMPH # 2.42 (1.18-3.74); LYMPH % 20.1 % (19.3-53.1); MEAN PLATELET VOLUME 12.00 fl (9.4-12.4); MONO # 0.57 (0.24-0.82); MONO % 4.7 % (4.7-12.5); NEUT # 8.68 (1.56-6.13); NEUT % 72.1 % (34.0-71.1); RED CELL DISTRIBUTION WIDTH 13.9 % (11.6-14.4)
[2025-04-24 07:09] LABS: ALT/SGPT 58 U/L (12-78); AST/SGOT 23 U/L (15-37); BILIRUBIN TOTAL 0.34 mg/dL (0.3-1.2); BILIRUBIN,CONJUGATED < 0.10 mg/dL (0.0-0.2); BUN CREA RATIO 27 (7.0-25.0); CREATININE SERUM 0.37 mg/dL (0.55-1.02); GFR 182.69; GLUCOSE FASTING 110 mg/dL (65-100); OSMOLALITY SERUM 279 MOSM/KG (275-295)
[2025-04-24 08:00] VITALS: BP 91/61; O2SAT 97
[2025-04-24] MEDS ORDERED: POTASSIUM PHOS,M-BASIC-D-BASIC 15 MM in 0.9 % SODIUM CHLORIDE 250 ML IV NR (12:00)
[2025-04-24 15:41] VITALS: BP 93/60; O2SAT 100
[2025-04-25 02:55] VITALS: BP 98/73; O2SAT 97
[2025-04-25 08:57] VITALS: BP 119/77; O2SAT 97
[2025-04-25 16:00] VITALS: BP 138/76; O2SAT 98
[2025-04-26] VITALS: BP 96/62; O2SAT 97
[2025-04-26 06:54] LABS: BASO % 0.3 % (0.1-1.2); EOS # 0.23 (0.04-0.54); EOS % 1.9 % (0.7-7.0); LYMPH # 2.59 (1.18-3.74); LYMPH % 21.5 % (19.3-53.1); MEAN PLATELET VOLUME 11.90 fl (9.4-12.4); MONO # 0.65 (0.24-0.82); MONO % 5.4 % (4.7-12.5); NEUT # 8.51 (1.56-6.13); NEUT % 70.6 % (34.0-71.1); RED CELL DISTRIBUTION WIDTH 13.8 % (11.6-14.4)
[2025-04-26 10:06] VITALS: BP 89/56; O2SAT 98
[2025-04-26 17:24] VITALS: BP 105/71; O2SAT 96
[2025-04-27 00:12] VITALS: BP 90/56; O2SAT 97
[2025-04-27 08:00] VITALS: BP 92/59; O2SAT 96
[2025-04-27] MEDS ORDERED: FLUCONAZOLE 200 MG TABLET PO STA (09:58)
[2025-04-27] MEDS ORDERED: FLUCONAZOLE 200 MG TABLET PO SCH (09:59)
[2025-04-27] MEDS ORDERED: DEXTROSE 5 % AND 0.9 % NACL 1,000 ML IV SCH (10:30)
[2025-04-27 11:18] LABS: BASO % 0.6 % (0.1-1.2); EOS # 0.19 (0.04-0.54); EOS % 2.8 % (0.7-7.0); LYMPH # 1.97 (1.18-3.74); LYMPH % 29.2 % (19.3-53.1); MEAN PLATELET VOLUME 11.80 fl (9.4-12.4); MONO # 0.44 (0.24-0.82); MONO % 6.5 % (4.7-12.5); NEUT # 4.10 (1.56-6.13); NEUT % 60.8 % (34.0-71.1); RED CELL DISTRIBUTION WIDTH 13.8 % (11.6-14.4)
[2025-04-27 11:22] LABS: COVID-19 AG NEGATIVE (NEGATIVE)
[2025-04-27 12:39] LABS: ALT/SGPT 46.0 U/L (12-78); AST/SGOT 19.0 U/L (15-37); BILIRUBIN TOTAL 0.22 mg/dL (0.3-1.2); BILIRUBIN,CONJUGATED 0.1 mg/dL (0.0-0.2); BUN CREA RATIO 13.0 (7.0-25.0); CREATININE SERUM 0.46 mg/dL (0.55-1.02); GFR 142.1; GLUCOSE FASTING 94.0 mg/dL (65-100); OSMOLALITY SERUM 282.0 MOSM/KG (275-295)
[2025-04-27 16:16] VITALS: O2SAT 98
[2025-04-27 16:58] VITALS: BP 99/66; O2SAT 99
[2025-04-27 19:35] VITALS: O2SAT 98
[2025-04-27 19:59] VITALS: BP 98/70
[2025-04-28] VITALS (8 sets, daily range): BP systolic 102–118; BP diastolic 62–78; O2SAT 90–100
[2025-04-28] MEDS ORDERED: POTASSIUM PHOS,M-BASIC-D-BASIC 9 MM in 0.9 % SODIUM CHLORIDE 250 ML IV NR (08:00)
[2025-04-28] MEDS ORDERED: MAGNESIUM SULFATE IN WATER 2 GM/50 ML PIGGYBAG IV NR (08:15)
[2025-04-28] MEDS ORDERED: FLUTICASONE PROPIONATE 50 MCG SPRAY NASAL SCH (21:00)
[2025-04-28] MEDS ORDERED: LORATADINE 10 MG TABLET PO SCH (21:00)
[2025-04-29] VITALS (7 sets, daily range): BP systolic 105–130; BP diastolic 72–82; O2SAT 90–100
[2025-04-30 00:27] VITALS: BP 108/77; O2SAT 97
[2025-04-30 08:00] VITALS: BP 110/73; O2SAT 98
[2025-04-30] MEDS ORDERED: AMOXICILLIN/POTASSIUM CLAV 875-125 TABLET PO STA (11:47)
[2025-04-30 16:00] VITALS: BP 111/74; O2SAT 100
[2025-04-30] MEDS ORDERED: AMOXICILLIN/POTASSIUM CLAV 875-125 TABLET PO SCH (21:00)
[2025-05-01 00:12] VITALS: BP 115/79; O2SAT 99
[2025-05-01 08:25] LABS: BASO % 0.3 % (0.1-1.2); EOS # 0.20 (0.04-0.54); EOS % 3.5 % (0.7-7.0); LYMPH # 2.17 (1.18-3.74); LYMPH % 37.5 % (19.3-53.1); MEAN PLATELET VOLUME 12.00 fl (9.4-12.4); MONO # 0.26 (0.24-0.82); MONO % 4.5 % (4.7-12.5); NEUT # 3.12 (1.56-6.13); NEUT % 53.9 % (34.0-71.1); RED CELL DISTRIBUTION WIDTH 13.6 % (11.6-14.4)
[2025-05-01 08:52] VITALS: BP 112/77; O2SAT 99
[2025-05-01 09:06] LABS: BUN CREA RATIO 19.0 (7.0-25.0); CREATININE SERUM 0.42 mg/dL (0.55-1.02); GFR 157.82; GLUCOSE FASTING 90.0 mg/dL (65-100); OSMOLALITY SERUM 285.0 MOSM/KG (275-295)
[2025-05-01] MEDS ORDERED: DIPHENHYDRAMINE HCL 50 MG/ML VIAL 1ML IV NR (11:30)
[2025-05-01] MEDS ORDERED: METHYLPREDNISOLONE SOD SUCC 125 MG VIAL IV NR (11:30)
[2025-05-01 16:03] VITALS: BP 125/80; O2SAT 96
[2025-05-01] MEDS ORDERED: MAGNESIUM SULFATE IN WATER 2 GM/50 ML PIGGYBAG IV NR (19:00)
[2025-05-02 01:38] VITALS: BP 105/70; O2SAT 100
[2025-05-02 09:39] VITALS: BP 123/82; O2SAT 99
[2025-05-02 16:20] VITALS: BP 100/67; O2SAT 100
[2025-05-02] MEDS ORDERED: NAPH,MB-DB/K PH,MBDB 1 PKT PACKET PO SCH (21:00)
[2025-05-03 01:35] VITALS: BP 131/82; O2SAT 98
[2025-05-03 09:13] VITALS: BP 121/79; O2SAT 98
[2025-05-03] MEDS ORDERED: SOD FERRIC GLUC COMPLX/SUCROSE 62.5 MG/5 ML AMPUL IV SCH (13:02)
[2025-05-03 16:36] VITALS: BP 108/73; O2SAT 98
[2025-05-04 00:37] VITALS: BP 101/68; O2SAT 96
[2025-05-04 06:27] LABS: BASO % 0.7 % (0.1-1.2); EOS # 0.14 (0.04-0.54); EOS % 1.8 % (0.7-7.0); LYMPH # 2.92 (1.18-3.74); LYMPH % 38.6 % (19.3-53.1); MEAN PLATELET VOLUME 11.50 fl (9.4-12.4); MONO # 0.47 (0.24-0.82); MONO % 6.2 % (4.7-12.5); NEUT # 3.97 (1.56-6.13); NEUT % 52.4 % (34.0-71.1); RED CELL DISTRIBUTION WIDTH 14.4 % (11.6-14.4)
[2025-05-04 07:06] LABS: BUN CREA RATIO 32.0 (7.0-25.0); CREATININE SERUM 0.57 mg/dL (0.55-1.02); GFR 110.95; GLUCOSE FASTING 94.0 mg/dL (65-100); OSMOLALITY SERUM 287.0 MOSM/KG (275-295)
[2025-05-04 07:30] VITALS: BP 110/77; O2SAT 97
[2025-05-04 17:58] VITALS: BP 106/65; O2SAT 98
[2025-05-05 00:48] VITALS: BP 100/61; O2SAT 97
[2025-05-05 08:38] VITALS: BP 130/82; O2SAT 98
[2025-05-05] MEDS ORDERED: MAGNESIUM SULFATE/D5W 100 ML IV NR (09:00)
[2025-05-05 16:00] VITALS: BP 91/60; O2SAT 98
[2025-05-06 01:24] VITALS: BP 105/54; O2SAT 98
[2025-05-06 08:00] VITALS: BP 100/75; O2SAT 99
[2025-05-06 16:00] VITALS: BP 91/64; O2SAT 98
[2025-05-07 00:33] VITALS: BP 103/58; O2SAT 99
[2025-05-07 08:23] LABS: ALT/SGPT 49 U/L (12-78); AST/SGOT 24 U/L (15-37); BILIRUBIN TOTAL 0.36 mg/dL (0.3-1.2); BILIRUBIN,CONJUGATED < 0.10 mg/dL (0.0-0.2); BUN CREA RATIO 33 (7.0-25.0); CREATININE SERUM 0.54 mg/dL (0.55-1.02); GFR 118.09; GLUCOSE FASTING 91 mg/dL (65-100); OSMOLALITY SERUM 279 MOSM/KG (275-295)
[2025-05-07 08:42] VITALS: BP 89/65; O2SAT 97
[2025-05-07 08:52] LABS: BASO % 0.4 % (0.1-1.2); EOS # 0.42 (0.04-0.54); EOS % 3.8 % (0.7-7.0); LYMPH # 3.14 (1.18-3.74); LYMPH % 28.6 % (19.3-53.1); MEAN PLATELET VOLUME 12.00 fl (9.4-12.4); MONO # 0.47 (0.24-0.82); MONO % 4.3 % (4.7-12.5); NEUT # 6.90 (1.56-6.13); NEUT % 62.7 % (34.0-71.1); RED CELL DISTRIBUTION WIDTH 14.6 % (11.6-14.4)
[2025-05-08 01:19] VITALS: BP 113/76; O2SAT 98
[2025-05-08 08:00] VITALS: BP 11/84; O2SAT 97
[2025-05-08] MEDS ORDERED: DIPHENHYDRAMINE HCL 50 MG/ML VIAL 1ML IV NR (09:00)
[2025-05-08] MEDS ORDERED: METHYLPREDNISOLONE SOD SUCC 125 MG VIAL IV NR (09:00)
[2025-05-08 16:49] VITALS: BP 107/75; O2SAT 99
[2025-05-09 00:38] VITALS: BP 90/58; O2SAT 95
[2025-05-09 08:00] VITALS: BP 104/68
[2025-05-09 16:17] VITALS: BP 103/70; O2SAT 99
[2025-05-10 00:41] VITALS: BP 105/68; O2SAT 99
[2025-05-10 16:26] VITALS: BP 93/61; O2SAT 97
[2025-05-11 01:25] VITALS: BP 111/72; O2SAT 98
[2025-05-11 08:00] VITALS: BP 110/70; O2SAT 98
[2025-05-11 16:00] VITALS: BP 104/74; O2SAT 97
[2025-05-12 01:02] VITALS: BP 100/70; O2SAT 98
[2025-05-12 08:00] VITALS: BP 103/74; O2SAT 97
[2025-05-12 08:16] LABS: BASO % 0.3 % (0.1-1.2); EOS # 0.49 (0.04-0.54); EOS % 3.6 % (0.7-7.0); LYMPH # 2.14 (1.18-3.74); LYMPH % 15.8 % (19.3-53.1); MEAN PLATELET VOLUME 11.60 fl (9.4-12.4); MONO # 0.62 (0.24-0.82); MONO % 4.6 % (4.7-12.5); NEUT # 10.21 (1.56-6.13); NEUT % 75.3 % (34.0-71.1); RED CELL DISTRIBUTION WIDTH 14.6 % (11.6-14.4)
[2025-05-12 08:45] LABS: ALT/SGPT 82.0 U/L (12-78); AST/SGOT 40.0 U/L (15-37); BILIRUBIN TOTAL 0.74 mg/dL (0.3-1.2); BUN CREA RATIO 25.0 (7.0-25.0); CREATININE SERUM 0.57 mg/dL (0.55-1.02); GFR 110.95; GLOBULINA 4.0 G/DL (2.4-3.5); GLUCOSE FASTING 94.0 mg/dL (65-100); LDH 153.0 U/L (84-246); OSMOLALITY SERUM 280.0 MOSM/KG (275-295)
[2025-05-12] MEDS ORDERED: FLUCONAZOLE IN NACL,ISO-OSM 200 MG/100 ML PIGGYBAG IV STA (10:47)
[2025-05-12] MEDS ORDERED: DEXTROSE 5 %-0.45 % SOD CHLORD 1,000 ML IV SCH (12:45)
[2025-05-12 12:59] LABS: URINE APPEARANCE Clear; URINE BILIRRUBIN Negative (NEGATIVE); URINE BLOOD Small; URINE COLOR Yellow; URINE GLUCOSE Negative (NEGATIVE); URINE KETONE Negative (NEGATIVE); URINE LEUKOCYTE Trace; URINE NITRATE Negative; URINE PROTEIN Negative (NEGATIVE); URINE UROBILINOGEN 0.2 E.U./dl
[2025-05-12 13:02] LABS: URINE BACTERIA 9.5 uL (0.0-1933); URINE EPITHELIAL CELLS 2.4 uL (0.0-38.8); URINE RBC 11.1 uL (0.0-20.8); URINE WBC 15.9 uL (0.0-23.2)
[2025-05-12 13:03] LABS: URINE CAST 0.14 uL (0.0-1.40)
[2025-05-12] MEDS ORDERED: METRONIDAZOLE/SODIUM CHLORIDE 500 MG/100 ML PIGGYBACK IV STA (13:32)
[2025-05-12] MEDS ORDERED: LINEZOLID IN DEXTROSE 5% 600 MG/300 ML PIGGYBAG IV STA (13:34)
[2025-05-12] MEDS ORDERED: METHYLPREDNISOLONE SOD SUCC 125 MG VIAL IV NR (14:00)
[2025-05-12] MEDS ORDERED: DIATRIZOATE MEGLUMINE, SODIUM 30 ML BOTTLE PO NR (14:00)
[2025-05-12] MEDS ORDERED: DIPHENHYDRAMINE HCL 50 MG/ML VIAL 1ML IV NR (14:00)
[2025-05-12 16:00] VITALS: BP 116/82; O2SAT 98
[2025-05-12] MEDS ORDERED: MORPHINE SULFATE 4 MG/ML CARTRIDGE IV PRN (16:45)
[2025-05-12] MEDS ORDERED: LOPERAMIDE HCL 2 MG CAPSULE PO NR (16:45)
[2025-05-12] MEDS ORDERED: PANTOPRAZOLE SODIUM 40 MG/VIAL VIAL IV SCH (17:00)
[2025-05-12] MEDS ORDERED: CEFTAZIDIME/AVIBACTAM 2.5 GM VIAL IV SCH (17:00)
[2025-05-12] MEDS ORDERED: LINEZOLID IN DEXTROSE 5% 600 MG/300 ML PIGGYBAG IV SCH (21:00)
[2025-05-12] MEDS ORDERED: METRONIDAZOLE/SODIUM CHLORIDE 500 MG/100 ML PIGGYBACK IV SCH (21:00)
[2025-05-13 00:30] VITALS: BP 112/77; O2SAT 97
[2025-05-13 08:10] LABS: BASO % 0.1 % (0.1-1.2); EOS # 0.01 (0.04-0.54); EOS % 0.1 % (0.7-7.0); LYMPH # 1.03 (1.18-3.74); LYMPH % 8.9 % (19.3-53.1); MEAN PLATELET VOLUME 12.60 fl (9.4-12.4); MONO # 0.08 (0.24-0.82); MONO % 0.7 % (4.7-12.5); NEUT # 10.37 (1.56-6.13); NEUT % 89.9 % (34.0-71.1); RED CELL DISTRIBUTION WIDTH 14.5 % (11.6-14.4)
[2025-05-13 08:26] VITALS: BP 132/77; O2SAT 100
[2025-05-13 08:36] LABS: ALT/SGPT 85.0 U/L (12-78); AST/SGOT 32.0 U/L (15-37); BILIRUBIN TOTAL 0.39 mg/dL (0.3-1.2); BILIRUBIN,CONJUGATED 0.13 mg/dL (0.0-0.2); BUN CREA RATIO 15.0 (7.0-25.0); CREATININE SERUM 0.66 mg/dL (0.55-1.02); GFR 93.68; GLUCOSE FASTING 159.0 mg/dL (65-100); OSMOLALITY SERUM 278.0 MOSM/KG (275-295)
[2025-05-13] MEDS ORDERED: FLUCONAZOLE IN NACL,ISO-OSM 200 MG/100 ML PIGGYBAG IV SCH (09:00)
[2025-05-13] MEDS ORDERED: 0.9 % SODIUM CHLORIDE 1,000 ML IV SCH (09:15)
[2025-05-13 16:47] VITALS: BP 109/64; O2SAT 100
[2025-05-13] MEDS ORDERED: POTASSIUM PHOS,M-BASIC-D-BASIC 15 MM in 0.9 % SODIUM CHLORIDE 250 ML IV ONE (21:15)
[2025-05-14 01:17] VITALS: BP 105/57; O2SAT 98
[2025-05-14 08:00] VITALS: BP 106/70; O2SAT 95
[2025-05-14 11:21] LABS: BASO % 0.2 % (0.1-1.2); EOS # 0.16 (0.04-0.54); EOS % 1.4 % (0.7-7.0); LYMPH # 3.58 (1.18-3.74); LYMPH % 30.2 % (19.3-53.1); MEAN PLATELET VOLUME 11.90 fl (9.4-12.4); MONO # 0.63 (0.24-0.82); MONO % 5.3 % (4.7-12.5); NEUT # 7.44 (1.56-6.13); NEUT % 62.7 % (34.0-71.1); RED CELL DISTRIBUTION WIDTH 14.6 % (11.6-14.4)
[2025-05-14 11:49] LABS: ALT/SGPT 53.0 U/L (12-78); AST/SGOT 15.0 U/L (15-37); BILIRUBIN TOTAL 0.25 mg/dL (0.3-1.2); BILIRUBIN,CONJUGATED 0.11 mg/dL (0.0-0.2); BUN CREA RATIO 16.0 (7.0-25.0); CREATININE SERUM 0.64 mg/dL (0.55-1.02); GFR 97.07; GLUCOSE FASTING 126.0 mg/dL (65-100); OSMOLALITY SERUM 286.0 MOSM/KG (275-295)
[2025-05-14 16:00] VITALS: BP 86/48; O2SAT 99
[2025-05-14] MEDS ORDERED: POTASSIUM CHLORIDE IN WATER 100 ML IV NR (17:00)
[2025-05-14 18:00] VITALS: BP 113/69; O2SAT 97
[2025-05-15 01:03] VITALS: BP 105/62; O2SAT 98
[2025-05-15] MEDS ORDERED: MAGNESIUM SULFATE IN WATER 2 GM/50 ML PIGGYBAG IV NR (07:45)
[2025-05-15 08:48] VITALS: BP 106/72; O2SAT 98
[2025-05-15] MEDS ORDERED: SOD FERRIC GLUC COMPLX/SUCROSE 62.5 MG/5 ML AMPUL IV SCH (09:00)
[2025-05-15] MEDS ORDERED: PANTOPRAZOLE SODIUM 40 MG TABLET.DR PO SCH (17:00)
[2025-05-15 18:18] VITALS: BP 112/75
[2025-05-16 00:14] VITALS: BP 117/72; O2SAT 95
[2025-05-16 06:47] LABS: BASO % 0.3 % (0.1-1.2); EOS # 0.20 (0.04-0.54); EOS % 2.6 % (0.7-7.0); LYMPH # 2.34 (1.18-3.74); LYMPH % 30.4 % (19.3-53.1); MEAN PLATELET VOLUME 12.00 fl (9.4-12.4); MONO # 0.62 (0.24-0.82); MONO % 8.1 % (4.7-12.5); NEUT # 4.50 (1.56-6.13); NEUT % 58.3 % (34.0-71.1); RED CELL DISTRIBUTION WIDTH 14.6 % (11.6-14.4)
[2025-05-16 07:19] LABS: ALT/SGPT 31 U/L (12-78); AST/SGOT 13 U/L (15-37); BILIRUBIN TOTAL 0.18 mg/dL (0.3-1.2); BILIRUBIN,CONJUGATED < 0.10 mg/dL (0.0-0.2); BUN CREA RATIO 11 (7.0-25.0); CREATININE SERUM 0.64 mg/dL (0.55-1.02); GFR 97.07; GLUCOSE FASTING 109 mg/dL (65-100); OSMOLALITY SERUM 284 MOSM/KG (275-295)
[2025-05-16 08:00] VITALS: BP 119/79; O2SAT 98
[2025-05-16 16:05] VITALS: BP 121/69; O2SAT 98
[2025-05-17 01:53] VITALS: BP 105/72; O2SAT 99
[2025-05-17 08:00] VITALS: BP 127/78; O2SAT 98
[2025-05-17] MEDS ORDERED: NAPH,MB-DB/K PH,MBDB 1 PKT PACKET PO SCH (13:00)
[2025-05-17 16:00] VITALS: BP 122/80; O2SAT 100
[2025-05-18 01:36] VITALS: BP 105/70; O2SAT 98
[2025-05-18 09:49] VITALS: BP 117/79; O2SAT 98
[2025-05-18 16:29] VITALS: BP 124/76; O2SAT 98
[2025-05-19 01:10] VITALS: BP 106/77; O2SAT 98
[2025-05-19 08:00] VITALS: BP 142/76; O2SAT 98
[2025-05-19] MEDS ORDERED: SOD FERRIC GLUC COMPLX/SUCROSE 62.5 MG/5 ML AMPUL IV SCH (09:00)
[2025-05-19 14:16] LABS: BASO % 0.3 % (0.1-1.2); EOS # 0.28 (0.04-0.54); EOS % 3.9 % (0.7-7.0); LYMPH # 2.63 (1.18-3.74); LYMPH % 36.7 % (19.3-53.1); MEAN PLATELET VOLUME 11.50 fl (9.4-12.4); MONO # 0.44 (0.24-0.82); MONO % 6.1 % (4.7-12.5); NEUT # 3.79 (1.56-6.13); NEUT % 52.9 % (34.0-71.1); RED CELL DISTRIBUTION WIDTH 14.1 % (11.6-14.4)
[2025-05-19 14:51] LABS: ALT/SGPT 35.0 U/L (12-78); AST/SGOT 19.0 U/L (15-37); BILIRUBIN TOTAL 0.22 mg/dL (0.3-1.2); BUN CREA RATIO 11.0 (7.0-25.0); CREATININE SERUM 0.54 mg/dL (0.55-1.02); GFR 118.09; GLOBULINA 3.4 G/DL (2.4-3.5); GLUCOSE FASTING 102.0 mg/dL (65-100); LDH 184.0 U/L (84-246); OSMOLALITY SERUM 285.0 MOSM/KG (275-295)
[2025-05-19 16:00] VITALS: BP 110/70; O2SAT 100
[2025-05-20 01:14] VITALS: BP 117/65; O2SAT 98
[2025-05-20] MEDS ORDERED: METHYLPREDNISOLONE SOD SUCC 125 MG VIAL IV NR (07:00)
[2025-05-20] MEDS ORDERED: DIPHENHYDRAMINE HCL 50 MG/ML VIAL 1ML IV NR (07:00)
[2025-05-20 08:50] VITALS: BP 135/83; O2SAT 98
[2025-05-20 16:00] VITALS: BP 123/83; O2SAT 97
[2025-05-21 00:15] VITALS: BP 125/83; O2SAT 97
[2025-05-21 08:12] VITALS: BP 132/86; O2SAT 99
[2025-05-21 15:00] VITALS: BP 106/69; O2SAT 95
[2025-05-22] VITALS: BP 122/82; O2SAT 98
[2025-05-22 08:01] LABS: BASO % 0.3 % (0.1-1.2); EOS # 0.09 (0.04-0.54); EOS % 0.8 % (0.7-7.0); LYMPH # 3.16 (1.18-3.74); LYMPH % 27.3 % (19.3-53.1); MEAN PLATELET VOLUME 11.10 fl (9.4-12.4); MONO # 0.50 (0.24-0.82); MONO % 4.3 % (4.7-12.5); NEUT # 7.78 (1.56-6.13); NEUT % 67.0 % (34.0-71.1); RED CELL DISTRIBUTION WIDTH 14.4 % (11.6-14.4)
[2025-05-22 08:26] VITALS: BP 122/81; O2SAT 97
[2025-05-22 08:56] LABS: ALT/SGPT 33 U/L (12-78); AST/SGOT 22 U/L (15-37); BILIRUBIN TOTAL 0.30 mg/dL (0.3-1.2); BILIRUBIN,CONJUGATED < 0.10 mg/dL (0.0-0.2); BUN CREA RATIO 18 (7.0-25.0); CREATININE SERUM 0.51 mg/dL (0.55-1.02); GFR 126.14; GLUCOSE FASTING 76 mg/dL (65-100); OSMOLALITY SERUM 284 MOSM/KG (275-295)
[2025-05-22] MEDS ORDERED: MEROPENEM/VABORBACTAM 2 GM VIAL IV SCH (13:00)
[2025-05-22] MEDS ORDERED: MAGNESIUM SULFATE IN WATER 4 GM/100 ML PIGGYBACK IV NR (15:30)
[2025-05-22 16:47] VITALS: BP 118/76; O2SAT 99
[2025-05-23 00:30] VITALS: BP 109/61; O2SAT 98
[2025-05-23 08:00] VITALS: BP 112/71; O2SAT 98
[2025-05-23] MEDS ORDERED: NAPH,MB-DB/K PH,MBDB 1 PKT PACKET PO SCH (09:00)
[2025-05-23 16:00] VITALS: BP 137/87; O2SAT 100
[2025-05-23 23:53] VITALS: BP 104/61; O2SAT 99
[2025-05-24 06:57] LABS: BASO % 0.4 % (0.1-1.2); EOS # 0.27 (0.04-0.54); EOS % 3.4 % (0.7-7.0); LYMPH # 1.89 (1.18-3.74); LYMPH % 23.6 % (19.3-53.1); MEAN PLATELET VOLUME 11.00 fl (9.4-12.4); MONO # 0.58 (0.24-0.82); MONO % 7.3 % (4.7-12.5); NEUT # 5.22 (1.56-6.13); NEUT % 65.2 % (34.0-71.1); RED CELL DISTRIBUTION WIDTH 14.3 % (11.6-14.4)
[2025-05-24 07:38] LABS: ALT/SGPT 28.0 U/L (12-78); AST/SGOT 14.0 U/L (15-37); BILIRUBIN TOTAL 0.22 mg/dL (0.3-1.2); BUN CREA RATIO 11.0 (7.0-25.0); CREATININE SERUM 0.55 mg/dL (0.55-1.02); GFR 115.62; GLOBULINA 3.3 G/DL (2.4-3.5); GLUCOSE FASTING 100.0 mg/dL (65-100); OSMOLALITY SERUM 285.0 MOSM/KG (275-295)
[2025-05-24 08:00] VITALS: BP 119/78; O2SAT 98
[2025-05-24 16:29] VITALS: BP 97/67; O2SAT 98
[2025-05-25 00:47] VITALS: BP 107/69; O2SAT 98
[2025-05-25 08:00] VITALS: BP 129/84; O2SAT 99
[2025-05-25 18:01] VITALS: BP 101/68; O2SAT 98
[2025-05-26 01:55] VITALS: BP 105/68; O2SAT 99
[2025-05-26 06:21] LABS: BASO % 0.5 % (0.1-1.2); EOS # 0.47 (0.04-0.54); EOS % 4.9 % (0.7-7.0); LYMPH # 3.10 (1.18-3.74); LYMPH % 32.6 % (19.3-53.1); MEAN PLATELET VOLUME 11.50 fl (9.4-12.4); MONO # 0.68 (0.24-0.82); MONO % 7.1 % (4.7-12.5); NEUT # 5.18 (1.56-6.13); NEUT % 54.5 % (34.0-71.1); RED CELL DISTRIBUTION WIDTH 14.1 % (11.6-14.4)
[2025-05-26 06:52] LABS: BUN CREA RATIO 19.0 (7.0-25.0); CREATININE SERUM 0.48 mg/dL (0.55-1.02); GFR 135.29; GLUCOSE FASTING 90.0 mg/dL (65-100); OSMOLALITY SERUM 283.0 MOSM/KG (275-295)
[2025-05-26 08:00] VITALS: BP 108/80; O2SAT 99
[2025-05-26 17:58] VITALS: BP 98/63; O2SAT 98
[2025-05-27 01:13] VITALS: BP 114/74; O2SAT 95
[2025-05-27 09:39] VITALS: BP 104/69; O2SAT 97
[2025-05-27 17:23] VITALS: BP 104/71; O2SAT 100
[2025-05-28 00:30] VITALS: BP 101/60; O2SAT 98
[2025-05-28 08:38] VITALS: BP 102/70; O2SAT 97
[2025-05-28 16:00] VITALS: BP 95/65; O2SAT 98
[2025-05-29 01:09] VITALS: BP 117/68; O2SAT 98
[2025-05-29 06:38] LABS: BASO % 0.4 % (0.1-1.2); EOS # 0.30 (0.04-0.54); EOS % 3.9 % (0.7-7.0); LYMPH # 2.49 (1.18-3.74); LYMPH % 32.3 % (19.3-53.1); MEAN PLATELET VOLUME 11.50 fl (9.4-12.4); MONO # 0.56 (0.24-0.82); MONO % 7.3 % (4.7-12.5); NEUT # 4.31 (1.56-6.13); NEUT % 55.8 % (34.0-71.1); RED CELL DISTRIBUTION WIDTH 15.2 % (11.6-14.4)
[2025-05-29 07:17] LABS: ALT/SGPT 29 U/L (12-78); AST/SGOT 13 U/L (15-37); BILIRUBIN TOTAL 0.33 mg/dL (0.3-1.2); BILIRUBIN,CONJUGATED < 0.10 mg/dL (0.0-0.2); BUN CREA RATIO 24 (7.0-25.0); CREATININE SERUM 0.62 mg/dL (0.55-1.02); GFR 100.69; GLUCOSE FASTING 116 mg/dL (65-100); OSMOLALITY SERUM 285 MOSM/KG (275-295)
[2025-05-29] MEDS ORDERED: NAPH,MB-DB/K PH,MBDB 1 PKT PACKET PO SCH (17:00)
[2025-05-29 17:44] VITALS: BP 99/69; O2SAT 98
[2025-05-30] MEDS ORDERED: ORPHENADRINE CITRATE 100 MG TABLET PO PRN (00:30)
[2025-05-30 02:08] VITALS: BP 107/66; O2SAT 98
[2025-05-30] MEDS ORDERED: METHYLPREDNISOLONE SOD SUCC 125 MG VIAL IV NR (07:00)
[2025-05-30] MEDS ORDERED: DIPHENHYDRAMINE HCL 50 MG/ML VIAL 1ML IV NR (07:00)
[2025-05-30 16:39] VITALS: BP 93/65; O2SAT 97
[2025-05-31 00:35] VITALS: BP 100/66; O2SAT 98
[2025-05-31 08:00] VITALS: BP 97/64; O2SAT 98
[2025-05-31 16:48] VITALS: BP 97/64; O2SAT 99
[2025-06-01 00:28] VITALS: BP 104/71; O2SAT 98
[2025-06-01 10:41] VITALS: BP 101/76; O2SAT 97
[2025-06-01 18:05] VITALS: BP 106/72; O2SAT 100
[2025-06-02 00:58] VITALS: BP 91/59; O2SAT 97
[2025-06-02 07:45] VITALS: BP 104/63; O2SAT 97
[2025-06-02 16:00] VITALS: BP 123/74; O2SAT 99
[2025-06-03 00:30] VITALS: BP 107/70; O2SAT 98
[2025-06-03 08:17] VITALS: BP 97/63; O2SAT 97
[2025-06-03 08:39] LABS: BASO % 0.6 % (0.1-1.2); EOS # 0.34 (0.04-0.54); EOS % 3.6 % (0.7-7.0); LYMPH # 2.41 (1.18-3.74); LYMPH % 25.7 % (19.3-53.1); MEAN PLATELET VOLUME 11.50 fl (9.4-12.4); MONO # 0.46 (0.24-0.82); MONO % 4.9 % (4.7-12.5); NEUT # 6.08 (1.56-6.13); NEUT % 65.0 % (34.0-71.1); RED CELL DISTRIBUTION WIDTH 15.6 % (11.6-14.4)
[2025-06-03 09:17] LABS: ALT/SGPT 41.0 U/L (12-78); AST/SGOT 16.0 U/L (15-37); BILIRUBIN TOTAL 0.42 mg/dL (0.3-1.2); BUN CREA RATIO 28.0 (7.0-25.0); CREATININE SERUM 0.68 mg/dL (0.55-1.02); GFR 90.51; GLOBULINA 4.0 G/DL (2.4-3.5); GLUCOSE FASTING 94.0 mg/dL (65-100); LDH 156.0 U/L (84-246); OSMOLALITY SERUM 287.0 MOSM/KG (275-295)
[2025-06-03 16:00] VITALS: BP 94/64; O2SAT 99
[2025-06-04 01:27] VITALS: BP 111/63; O2SAT 98
[2025-06-04 08:13] VITALS: BP 108/74; O2SAT 98
[2025-06-04 16:00] VITALS: BP 104/72; O2SAT 99
[2025-06-05 00:31] VITALS: BP 121/73; O2SAT 98
[2025-06-05 07:03] LABS: BUN CREA RATIO 25.0 (7.0-25.0); CREATININE SERUM 0.68 mg/dL (0.55-1.02); GFR 90.51; GLUCOSE FASTING 95.0 mg/dL (65-100); OSMOLALITY SERUM 281.0 MOSM/KG (275-295)
[2025-06-05 08:00] VITALS: BP 108/73; O2SAT 97
[2025-06-05 10:33] LABS: BASO % 0.3 % (0.1-1.2); EOS # 0.40 (0.04-0.54); EOS % 4.3 % (0.7-7.0); LYMPH # 2.09 (1.18-3.74); LYMPH % 22.4 % (19.3-53.1); MEAN PLATELET VOLUME 11.30 fl (9.4-12.4); MONO # 0.38 (0.24-0.82); MONO % 4.1 % (4.7-12.5); NEUT # 6.39 (1.56-6.13); NEUT % 68.7 % (34.0-71.1); RED CELL DISTRIBUTION WIDTH 15.5 % (11.6-14.4)
[2025-06-05 17:36] VITALS: BP 94/67; O2SAT 97
[2025-06-06 02:08] VITALS: BP 104/71; O2SAT 97
== END 2025-06-06 14:11 | disposition home or self-care (01) | DRG 330 ==
LOC: SURH 04-14 06:00 → O/R 04-14 06:00 → SURH 04-14 07:00 → ICU 04-17 22:16 → SURG 04-21 18:55 → SURH 04-29 10:33
PROVIDERS: Internal Medicine Geriatric Medicine; Internal Medicine Hematology & Oncology; Internal Medicine Infectious Disease; ADMIT Colon & Rectal Surgery; ATTEND Colon & Rectal Surgery
PROC: 0DNN4ZZ Release Sigmoid Colon, Percutaneous Endoscopic Approach (ICD-10-PCS; 2025-04-14)
PROC: 0DTJ4ZZ Resection of Appendix, Percutaneous Endoscopic Approach (ICD-10-PCS; 2025-04-14)
PROC: 0T788DZ Dilation of Bilateral Ureters with Intraluminal Device, Via Natural or Artificial Opening Endoscopic (ICD-10-PCS; 2025-04-14)
PROC: 0W9J40Z Drainage of Pelvic Cavity with Drainage Device, Percutaneous Endoscopic Approach (ICD-10-PCS; 2025-04-14)
PROC: 0DB84ZX Excision of Small Intestine, Percutaneous Endoscopic Approach, Diagnostic (ICD-10-PCS; 2025-04-14)
PROC: 0WP Anatomical Regions, General, Removal (ICD-10-PCS; 2025-04-14)
PROC: 0D1B4Z4 Bypass Ileum to Cutaneous, Percutaneous Endoscopic Approach (ICD-10-PCS; principal; 2025-04-14 07:00)
PROC: 0D9670Z Drainage of Stomach with Drainage Device, Via Natural or Artificial Opening (ICD-10-PCS; 2025-04-17)
PROC: 4A12X4Z Monitoring of Cardiac Electrical Activity, External Approach (ICD-10-PCS; 2025-04-17)
PROC: 30233N1 Transfusion of Nonautologous Red Blood Cells into Peripheral Vein, Percutaneous Approach (ICD-10-PCS; 2025-04-17)
PROC: 3E0436Z Introduction of Nutritional Substance into Central Vein, Percutaneous Approach (ICD-10-PCS; 2025-04-17)
PROC: 0DJ08ZZ Inspection of Upper Intestinal Tract, Via Natural or Artificial Opening Endoscopic (ICD-10-PCS; 2025-04-17)
PROC: 05H533Z Insertion of Infusion Device into Right Subclavian Vein, Percutaneous Approach (ICD-10-PCS; 2025-04-18)
PROC: BW21ZZZ Computerized Tomography (CT Scan) of Abdomen and Pelvis (ICD-10-PCS; 2025-04-25)
PROC: B54CZZZ Ultrasonography of Left Lower Extremity Veins (ICD-10-PCS; 2025-04-27)
PROC: B44GZZZ Ultrasonography of Left Lower Extremity Arteries (ICD-10-PCS; 2025-04-27)
PROC: 8E0ZXY6 Isolation (ICD-10-PCS; 2025-04-30)
PROC: BW210ZZ Computerized Tomography (CT Scan) of Abdomen and Pelvis using High Osmolar Contrast (ICD-10-PCS; 2025-05-01)
PROC: BW210ZZ Computerized Tomography (CT Scan) of Abdomen and Pelvis using High Osmolar Contrast (ICD-10-PCS; 2025-05-08)
PROC: BW210ZZ Computerized Tomography (CT Scan) of Abdomen and Pelvis using High Osmolar Contrast (ICD-10-PCS; 2025-05-12)
PROC: 3E03329 Introduction of Other Anti-infective into Peripheral Vein, Percutaneous Approach (ICD-10-PCS; 2025-05-12)
PROC: BW210ZZ Computerized Tomography (CT Scan) of Abdomen and Pelvis using High Osmolar Contrast (ICD-10-PCS; 2025-05-20)
PROC: BW210ZZ Computerized Tomography (CT Scan) of Abdomen and Pelvis using High Osmolar Contrast (ICD-10-PCS; 2025-05-30)
DX: K57.20 Diverticulitis of large intestine with perforation and abscess without bleeding (principal); D62 Acute posthemorrhagic anemia; K55.1 Chronic vascular disorders of intestine; K63.2 Fistula of intestine; K92.2 Gastrointestinal hemorrhage, unspecified; L02.818 Cutaneous abscess of other sites; L02.211 Cutaneous abscess of abdominal wall; I10 Essential (primary) hypertension; Z88.8 Allergy status to other drugs, medicaments and biological substances; N73.9 Female pelvic inflammatory disease, unspecified; N73.6 Female pelvic peritoneal adhesions (postinfective); B96.89 Other specified bacterial agents as the cause of diseases classified elsewhere; B95.2 Enterococcus as the cause of diseases classified elsewhere; B96.29 Other Escherichia coli [E. coli] as the cause of diseases classified elsewhere; N73.8 Other specified female pelvic inflammatory diseases
CPT/HCPCS: 44187; 44202; 44180; 44970; 74176; 93971; 74177 ×5; 36430; 36573; 93926; 52000; 49406; 43235; J0714